=== PATIENT | male | born 1950 | race Caucasian/White ===

== ENCOUNTER 2019-03-30 08:27 | Day surgery (SDC) | payer OTHER ==
[~2019-03-30] VITALS: Ht 170.2 cm; Wt 81.5 kg
[~2019-03-30 08:27] MED LIST: ACET325 PO; ALBU90OI INH; ASPI325; CETI10 PO; DESO.25TC TOP; DIPH50 PO; GEMFIBROZIL; GUAI100SY; METPRE4DP PO; MULVITA; SAW PALMENTO; ZONI100; [UNRECOGNIZED DRUG - OTHER]; [UNRECOGNIZED DRUG - OTHER]
[2019-03-30] MEDS ORDERED: IBUP400 (08:52)
[2019-03-30] MEDS ORDERED: ZONI100 (08:53)
[2019-03-30] MEDS ORDERED: Saw Palmetto450 MG (08:54)
[2019-03-30] MEDS ORDERED: CALCIUM 600 MG1 EACH (08:54)
[2019-03-30] MEDS ORDERED: REGULOID POWDE (08:55)
--- NOTE | 2019-03-30 09:25 | NUR ---
03/30/19 0925 Opal Jerez PATIENT IS DEVELOPMENTALLY DELAYED, CAREGIVER IS WITH PATIENT IN PRE OP ROOM. I DISCUSSED EVERYTHING WITH PATIENT AND CAREGIVER. ALL QUESTIONS WERE ANSWERED.
== END 2019-03-30 10:47 | disposition home or self-care (01) ==
LOC: ORSCSDS 08:27
PROVIDERS: Internal Medicine Gastroenterology
PROC: 0DBN8ZX Excision of Sigmoid Colon, Via Natural or Artificial Opening Endoscopic, Diagnostic (ICD-10-PCS; principal; 2019-03-30 09:45)
PROC: 0DBH8ZX Excision of Cecum, Via Natural or Artificial Opening Endoscopic, Diagnostic (ICD-10-PCS; principal; 2019-03-30 09:45)
DX: Z12.11 Encounter for screening for malignant neoplasm of colon (principal); D12.0 Benign neoplasm of cecum; K57.30 Diverticulosis of large intestine without perforation or abscess without bleeding; Z79.899 Other long term (current) drug therapy
CPT/HCPCS: 86803; 88305; J2704; J7120

== ENCOUNTER → 2023-06-13 | Outpatient (CLI) | payer OTHER | END | disposition home or self-care (01) | LOC: LAB SHORT 07:39 → LAB EV 07:39 | DX: D48.5 Neoplasm of uncertain behavior of skin (principal) ==